=== PATIENT | female | born 1985 | race Caucasian/White ===

== ENCOUNTER → 2017-06-22 | Outpatient (CLI) | payer OTHER ==
[2017-06-22 14:16] LABS: HEMATOCRIT 41.6 % (34.6-47.8); HEMOGLOBIN 14.1 g/dL (11.7-16.4); WHITE BLOOD COUNT 7.9 x10^3/uL (3.4-10)
[2017-06-22 14:30] LABS: BLOOD UREA NITROGEN 8 mg/dL (7-18)
[2017-06-22 14:57] LABS: ASPARTATE AMINO TRANSFERASE 16 U/L (15-37)
== END | disposition home or self-care (01) ==
LOC: LAB 14:06
PROVIDERS: ATTEND Nurse Practitioner Family
DX: Z00.01 Encounter for general adult medical examination with abnormal findings (principal); E55.9 Vitamin D deficiency, unspecified; E78.5 Hyperlipidemia, unspecified
CPT/HCPCS: 36415; 80053; 80061; 82306; 82607; 82746; 84439; 84443; 84481; 85025

== ENCOUNTER → 2017-09-30 | Outpatient (CLI) | payer OTHER | END | disposition home or self-care (01) | LOC: CFH 06:39 | PROVIDERS: ATTEND Nurse Practitioner Family | DX: M41.9 Scoliosis, unspecified (principal) | CPT/HCPCS: 72148 ==

== ENCOUNTER 2018-03-06 01:07 | Emergency (ER) | payer OTHER ==
[~2018-03-06] VITALS: Ht 149.9 cm; Wt 53.4 kg
[2018-03-06 01:10] VITALS: BP 108/66
[2018-03-06] MEDS ORDERED: MULTIVITAMIN (01:14)
[2018-03-06] MEDS ORDERED: IBUPROFEN 200 MG TABLET PO ONE (01:30)
== END 2018-03-06 02:26 | disposition other institution (70) ==
LOC: ED 02:20
DX: B34.9 Viral infection, unspecified (principal); M41.9 Scoliosis, unspecified
CPT/HCPCS: 99283

== ENCOUNTER 2018-12-24 03:21 | Emergency (ER) | payer OTHER ==
[~2018-12-24] VITALS: Ht 142.2 cm; Wt 53.8 kg
[~2018-12-24 03:21] MED LIST: MULTIVITAMIN
[2018-12-24 03:25] VITALS: BP 115/79
[2018-12-24] MEDS ORDERED: KETOROLAC 30 MG/1 ML ONE (03:42)
--- NOTE | 2018-12-24 03:44 | NUR ---
PT MEDICATED PER EMAR. 5 RIGHTS ADDRESSED
[2018-12-24] MEDS ORDERED: KETOROLAC 30 MG/1 ML IM ONE (04:00)
--- NOTE | 2018-12-24 04:26 | NUR ---
Patient/Caregiver given discharge instructions and they have confirmed that they understand the instructions. Patient ambulatory with steady gait.
== END 2018-12-24 04:28 | disposition home or self-care (01) ==
LOC: ED 03:55
DX: S39.012A Strain of muscle, fascia and tendon of lower back, initial encounter (principal); X58.XXXA Exposure to other specified factors, initial encounter; Y93.89 Activity, other specified; Y92.89 Other specified places as the place of occurrence of the external cause; Y99.8 Other external cause status
CPT/HCPCS: 96372; 99283; J1885